=== PATIENT | female | born 1950 | race Caucasian/White ===

== ENCOUNTER 2022-02-10 10:17 | Day surgery (SDC) | payer MEDICARE, OTHER ==
[~2022-02-10 10:17] MED LIST: Brimonidine 0.2% Ophth Soln 5 ML Bottle EYELF SCH; Cefuroxime 10 MG/ML SYRINGE EYELF SCH; Lidocaine 1% PF 2 ML SDV INJECT SCH; Phenylephrine 2.5% Ophth Soln 2 ML Bot EYELF SCH; Pilocarpine 4% Ophth Soln 15 ML Bot EYELF SCH; Polymyxin B/Trimethoprim 10 ML Bottle EYELF SCH; Tetracaine HCl/PF 0.5% 4 ML Bottle EYEBOTH SCH; Tropicamide 1% Ophth Soln 15 ML Bottle EYELF SCH
[2022-02-10] MEDS: Polymyxin B/Trimethoprim 10 ML Bottle EYELF SCH ×2 (10:26→11:59)
[2022-02-10] MEDS: Brimonidine 0.2% Ophth Soln 5 ML Bottle EYELF SCH ×3 (10:31→11:59)
[2022-02-10] MEDS: Phenylephrine 2.5% Ophth Soln 2 ML Bot EYELF SCH ×5 (10:36→11:17)
[2022-02-10] MEDS: Tropicamide 1% Ophth Soln 15 ML Bottle EYELF SCH ×5 (10:40→11:20)
[2022-02-10] MEDS: Tetracaine HCl/PF 0.5% 4 ML Bottle EYEBOTH SCH ×3 (11:23→11:31)
== END 2022-02-10 12:10 | disposition home or self-care (01) ==
LOC: JD.SDS 10:17
PROVIDERS: ATTEND Ophthalmology
DX: H25.813 Combined forms of age-related cataract, bilateral (principal); Z79.899 Other long term (current) drug therapy
CPT/HCPCS: 66984; J0697; C1780

== ENCOUNTER 2022-03-17 07:52 | Day surgery (SDC) | payer MEDICARE, OTHER ==
[~2022-03-17 07:52] MED LIST changes: -Brimonidine 0.2% Ophth Soln 5 ML Bottle EYELF SCH; -Cefuroxime 10 MG/ML SYRINGE EYELF SCH; +Cefuroxime 10 MG/ML SYRINGE EYERT SCH; -Phenylephrine 2.5% Ophth Soln 2 ML Bot EYELF SCH; -Pilocarpine 4% Ophth Soln 15 ML Bot EYELF SCH; +Pilocarpine 4% Ophth Soln 15 ML Bot EYERT SCH; -Polymyxin B/Trimethoprim 10 ML Bottle EYELF SCH; -Tetracaine HCl/PF 0.5% 4 ML Bottle EYEBOTH SCH; -Tropicamide 1% Ophth Soln 15 ML Bottle EYELF SCH
[2022-03-17] MEDS: Polymyxin B/Trimethoprim 10 ML Bottle EYERT SCH ×3 (08:00→09:57)
[2022-03-17] MEDS: Brimonidine 0.2% Ophth Soln 5 ML Bottle EYERT SCH ×3 (08:05→09:57)
[2022-03-17] MEDS: Phenylephrine 2.5% Ophth Soln 2 ML Bot EYERT SCH ×5 (08:11→09:28)
[2022-03-17] MEDS: Tropicamide 1% Ophth Soln 15 ML Bottle EYERT SCH ×4 (08:15→09:07)
[2022-03-17] MEDS: Tetracaine HCl/PF 0.5% 4 ML Bottle EYEBOTH SCH ×4 (09:18→09:43)
== END 2022-03-17 10:09 | disposition home or self-care (01) ==
LOC: JD.SDS 07:52
PROVIDERS: ATTEND Ophthalmology
DX: H25.811 Combined forms of age-related cataract, right eye (principal); Z98.890 Other specified postprocedural states
CPT/HCPCS: 66984; J0697; C1780

== ENCOUNTER 2024-07-17 07:15 | Day surgery (SDC) | payer MEDICARE, BC ==
[2024-07-17] MEDS: Lactated Ringers 1,000 ML IV SCH (07:15)
[2024-07-17] MEDS ORDERED: Bupivacaine 0.25% 10 ML SDV ONE (08:32)
[2024-07-17] MEDS ORDERED: Ropivacaine 0.5% 5 MG/ML 30 ML SDV ONE (08:55)
[2024-07-17] MEDS ORDERED: Propofol 200 MG/20 ML SDV ONE (09:03)
[2024-07-17] MEDS ORDERED: fentaNYL 100 MCG/2 ML SDV ONE (09:04)
[2024-07-17] MEDS ORDERED: ceFAZolin 2 GM Vial ONE (09:39)
[2024-07-17] MEDS ORDERED: Lactated Ringers 1,000 ML IV ONE (10:10)
[2024-07-17] MEDS ORDERED: Ketorolac 30 MG/ML SDV ONE (10:37)
[2024-07-17] MEDS ORDERED: Acetaminophen/HYDROcodone 325-5 MG Tab PO PRN (11:16)
[2024-07-17] MEDS ORDERED: Sodium Chloride 0.9% 10 ML Syringe FLUSH PRN (11:18)
[2024-07-17] MEDS ORDERED: Ondansetron 4 MG/2 ML SDV IVPUSH PRN (11:28)
[2024-07-17] MEDS ORDERED: HYDROmorphone 0.5 MG/0.5 ML Syringe IVPUSH PRN (11:28)
[2024-07-17] MEDS ORDERED: fentaNYL 100 MCG/2 ML SDV IVPUSH PRN (11:28)
[2024-07-17] MEDS ORDERED: Sodium Chloride 0.9% 10 ML Syringe FLUSH SCH (21:00)
== END 2024-07-17 13:55 | disposition home or self-care (01) ==
LOC: JD.SDS 07:15
PROVIDERS: ATTEND Orthopaedic Surgery
DX: M20.21 Hallux rigidus, right foot (principal); M20.5X1 Other deformities of toe(s) (acquired), right foot
CPT/HCPCS: 28150; 28262; 28750; 76000; J0665; J0690; J1885; J2704; J2795; J3010; J7120; 01480; 64450; 99100